=== PATIENT | male | born 1975 | race Caucasian/White ===

== ENCOUNTER 2021-09-13 12:12 | Inpatient (IN) | payer SELFPAY ==
[2021-09-13 12:50] LABS: Hematocrit 48.7 % (39.6-49.0); Lymphocytes % 14.3 % (15.3-44.8); MPV 7.2 fL (7.6-11.3); RBC Red Blood Cell Count 4.91 M/uL (4.33-5.43)
[2021-09-13 12:55] LABS: Protime INR 1.32
[2021-09-13 13:14] LABS: ALT/SGPT 16 U/L (12-78); AST/SGOT 12 U/L (15-37); Albumin 2.8 g/dL (3.4-5.0); Alkaline Phosphatase 90 U/L (45-117); BUN Blood Urea Nitrogen 15 mg/dL (7-18); Bicarbonate 28 mmol/L (21-32); Bilirubin Direct 0.1 mg/dL (0-0.2); Bilirubin Total 0.4 mg/dL (0.2-1.0); Glucose Level 113 mg/dL (74-106); Magnesium 2.5 mg/dL (1.8-2.4); NT PRO-BNP 64 pg/mL (<125); Potassium 4.3 mmol/L (3.5-5.1); Protein, Total 8.3 g/dL (6.4-8.2); Sodium Level 135 mmol/L (136-145)
--- NOTE | 2021-09-13 14:00 | RAD REPORT ---
EXAM DESCRIPTION: Ernesto Single View09/13/2021 1:13 pm CLINICAL HISTORY: Chest pain COMPARISON: 2012 FINDINGS: Right lower lobe consolidation Left lung appears clear of acute infiltrate. The heart is normal size IMPRESSION: Right lower lobe consolidation probably pneumonia
[2021-09-13 14:17] LABS: SARS-COV-2 RT PCR NEGATIVE (NEGATIVE)
--- NOTE | 2021-09-13 14:20 | RAD REPORT ---
EXAM DESCRIPTION: CT - Chest For Pe Angio - 09/13/2021 1:41 pm CLINICAL HISTORY: Chest pain COMPARISON: September 13, 2021 chest x-ray TECHNIQUE: Dynamically enhanced axial 3 mm thick images of the chest were obtained during administra tion of <100> mL Isovue 370 IV contrast. Coronal and oblique reconstruction images were generated and reviewed. Exam utilizes a protocol for optimal evaluation of pulmonary arterial tree. Maximum intensity projections 3D imaging was utilized All CT scans are performed using dose optimization technique as appropriate and may include automated exposure control or mA/KV adjustment according to patient size. FINDINGS: A pulmonary embolus is not seen. A thoracic aortic aneurysm is not noted. A pericardial effusion is not seen. Right lower lobe consolidation. Small right pleural effusion. COPD IMPRESSION: Negative for a pulmonary embolism. Right lower lobe consolidation likely pneumonia. This should be followed until it is clear to help ex clude post obstructive process/underlying mass
[2021-09-13] MEDS ORDERED: NA CHLORIDE 0.9% 1,000 ML ONE ×2 (14:41→15:59)
[2021-09-13] MEDS ORDERED: MORPHINE 4 MG/ML SYR ONE (14:41)
[2021-09-13] MEDS ORDERED: ONDANSETRON 4 MG/2 ML VIAL ONE (14:41)
--- NOTE | 2021-09-13 15:11 | ER ---
Nurse's Notes [facility] Name: Eliud Casarez Age: 46 yrs Sex: Male : 1975 Arrival Date: 09/13/2021 Time: 12:15 Bed 28 Private MD: Diagnosis: Pneumonia, unspecified organism Presentation: 09/13 12:18 Chief complaint: Patient states: he has had shortness of breath and chest pain that has ap3 gotten worse over the last 4 days. Coronavirus screen: Client presents with at least one sign or symptom that may indicate coronavirus-19. Standard/surgical mask placed on the client. Ebola Screen: No symptoms or risks identified at this time. Initial Sepsis Screen: Does the patient meet any 2 criteria? RR > 20 per min. HR > 90 bpm. Initial Sepsis Screen: Does the patient meet any 2 criteria? Does the patient have a suspected source of infection? No. Patient's initial sepsis screen is negative. Risk Assessment: Do you want to hurt yourself or someone else? Patient reports no desire to harm self or others. Onset of symptoms was September 09, 2021. 12:18 Method Of Arrival: Ambulatory ap3 12:18 Acuity: DENAE 2 ap3 Triage Assessment: 12:22 General: Appears uncomfortable, Behavior is cooperative. General: Reports. Pain: ap3 Complains of pain in chest Pain radiates to back. Neuro: Level of Consciousness is awake, Oriented to person, place, time, situation. Cardiovascular: Patient's skin is warm and dry. Chest pain is described as Pain is 10 out of 10 on a pain scale. quality is pressure, is located in left radiates back neck began 4 days ago. Respiratory: Reports shortness of breath cough that is Airway is patent. Historical: - Allergies: 12:21 PENICILLINS; ap3 - Home Meds: 12:21 None [Active]; ap3 - PMHx: 12:21 None; ap3 - Immunization history:: Client reports having NOT received the Covid vaccine. - Social history:: Smoking status: Patient reports the use of cigarette tobacco products, smokes one-half pack cigarettes per day, Patient uses street drugs, synthetic marijuana . Screenin:24 Abuse screen: Denies threats or abuse. Nutritional screening: No deficits noted. ap3 Tuberculosis screening: No symptoms or risk factors identified. 15:25 Fall Risk None identified. jg9 Assessment: 15:26 Pain: Pain began 1 day ago. jg9 Vital Signs: 12:18 BP 146 / 92; Pulse 127; Resp 19; Temp 99.4; Pulse Ox 97% on R/A; Weight 63.5 kg; Height ap3 5 ft. 10 in. (177.80 cm); Pain 10/10; 12:35 BP 121 / 99; Pulse 125; Resp 22 S; Pulse Ox 97% on R/A; ww 13:00 BP 128 / 91; Pulse 110; Resp 17; Pulse Ox 96% on R/A; ww 14:00 BP 148 / 98; Pulse 112; Resp 20 S; Pulse Ox 97% on R/A; ww 15:00 BP 129 / 85; Pulse 100; Resp 16; Pulse Ox 100% on R/A; jg9 12:18 Body Mass Index 20.09 (63.50 kg, 177.80 cm) ap3 ED Course: 12:15 Patient arrived in ED. ds1 12:21 Triage completed. ap3 12:24 Arm band placed on left wrist. ap3 12:25 Catherine Pat FNP-C is PHCP. kb 12:25 Austin Fitzpatrick MD is Attending Physician. kb 12:36 Debra Dumont, EARLENE is Primary Nurse. ww 13:12 XRAY Chest (1 view) In Process Unspecified. EDMS 13:41 CT Chest For PE Angio In Process Unspecified. EDMS 15:10 Tila Honeycutt MD is Hospitalizing Provider. kb 15:25 No apparent distress. Pt. is pacing. jg9 15:25 Patient has correct armband on for positive identification. Bed in low position. Call jg9 light in reach. Side rails up X 1. monitoring coordinator on. 15:26 Patient maintains SpO2 saturation greater than 95% on room air. jg9 16:26 No provider procedures requiring assistance completed. jg9 16:26 Patient admitted, IV remains in place. jg9 Administered Medications: 14:45 Drug: NS 0.9% 1000 ml Route: IV; Rate: 1000 ml; Site: right antecubital; ww 14:48 Drug: morphine 4 mg Route: IVP; Site: right antecubital; ww 14:56 Drug: Zofran (Ondansetron) 4 mg Route: IVP; Site: right antecubital; ww 15:31 Drug: Rocephin (cefTRIAXone) 1 grams Route: IV; Rate: calculated rate; Site: right ww antecubital; 15:46 Drug: Zithromax (azithromycin) 500 mg Route: IVPB; Infused Over: 1 hrs; Site: right ww antecubital; Outcome: 15:10 Decision to Hospitalize by Provider. kb 16:26 Admitted to ER Hold. Please see [facility] for further documentation. jg9 16:26 Condition: stable 09/14 15:35 Patient left the ED. eb Signatures: Dispatcher [employer] EDMS Catherine Pat, JO ANN-Josué FREIGHT HANDLER-Evonne Schilling ds1 Mikayla Hernández RN RN Tania Rosas Jennifer, RN RN jg9 Debra Dumont RN RN ww Corrections: (The following items were deleted from the chart) 09/13 12:22 12:21 Allergies: No Known Allergies; ap3 ap3
--- NOTE | 2021-09-13 15:11 | EDPHYS ---
Physician Documentation [facility] Name: Eliud Casarez Age: 46 yrs Sex: Male : 1975 Arrival Date: 09/13/2021 Time: 12:15 Bed 28 Private MD: ED Physician Austin Fitzpatrick HPI: 09/13 15:05 This 46 yrs old Male presents to ER via Ambulatory with complaints of Chest Pain. kb 15:06 The patient or guardian reports chest pain that is located primarily in the chest kb diffusely. Onset: 4 day(s) ago. The pain radiates to Associated signs and symptoms: Pertinent positives: shortness of breath. The chest pain is described as sharp. Duration: The patient or guardian reports a single episode, that is still ongoing. Modifying factors: The symptoms are alleviated by nothing. the symptoms are aggravated by cough, deep breath, movement. Severity of pain: At its worst the pain was moderate in the emergency department the pain is unchanged. The patient has not experienced similar symptoms in the past. Historical: - Allergies: 12:21 PENICILLINS; ap3 - Home Meds: 12:21 None [Active]; ap3 - PMHx: 12:21 None; ap3 - Immunization history:: Client reports having NOT received the Covid vaccine. - Social history:: Smoking status: Patient reports the use of cigarette tobacco products, smokes one-half pack cigarettes per day, Patient uses street drugs, synthetic marijuana . ROS: 15:05 Constitutional: Negative for fever, chills, and weight loss. kb 15:05 Cardiovascular: Positive for chest pain, Negative for edema, orthopnea, palpitations, paroxysmal nocturnal dyspnea. 15:05 Respiratory: Positive for cough, shortness of breath, Negative for dyspnea on exertion, hemoptysis, orthopnea, pleurisy, sputum production, wheezing. 15:05 All other systems are negative. Exam: 15:06 Constitutional: This is a well developed, well nourished patient who is awake, alert, kb and in no acute distress. Head/Face: Normocephalic, atraumatic. ENT: Moist Mucous membranes Respiratory: Respirations even and unlabored. No increased work of breathing. Talking in full sentences Abdomen/GI: Soft, non-tender. No distention Skin: Warm, dry with normal turgor. Normal color. MS/ Extremity: Pulses equal, no cyanosis. Neurovascular intact. Full, normal range of motion. Neuro: Awake and alert, GCS 15, oriented to person, place, time, and situation. Moves all extremities. Normal gait. Psych: Awake, alert, with orientation to person, place and time. Behavior, mood, and affect are within normal limits. 15:06 Cardiovascular: Rate: tachycardic, Rhythm: regular, Pulses: no pulse deficits are appreciated, Heart sounds: normal. Vital Signs: 12:18 BP 146 / 92; Pulse 127; Resp 19; Temp 99.4; Pulse Ox 97% on R/A; Weight 63.5 kg; Height ap3 5 ft. 10 in. (177.80 cm); Pain 10/10; 12:35 BP 121 / 99; Pulse 125; Resp 22 S; Pulse Ox 97% on R/A; ww 13:00 BP 128 / 91; Pulse 110; Resp 17; Pulse Ox 96% on R/A; ww 14:00 BP 148 / 98; Pulse 112; Resp 20 S; Pulse Ox 97% on R/A; ww 15:00 BP 129 / 85; Pulse 100; Resp 16; Pulse Ox 100% on R/A; jg9 12:18 Body Mass Index 20.09 (63.50 kg, 177.80 cm) ap3 MDM: 12:27 Patient medically screened. kb 15:03 Data reviewed: vital signs, nurses notes. Data interpreted: Pulse oximetry: on room air kb is 87 %. Interpretation: hypoxia. Plan: O2 by NC applied. Counseling: I had a detailed discussion with the patient and/or guardian regarding: the historical points, exam findings, and any diagnostic results supporting the discharge/admit diagnosis, lab results, radiology results, the need for further work-up and treatment in the hospital. 15:06 Physician consultation: Tila Honeycutt MD was contacted at 15:06, regarding admission, kb to the medical/surgical unit. patient's condition, and will see patient in ED. 09/13 12:26 Order name: Basic Metabolic Panel; Complete Time: 13:21 kb 09/13 12:26 Order name: CBC with Diff; Complete Time: 12:58 kb 09/13 12:26 Order name: LFT's; Complete Time: 13:21 kb 09/13 12:26 Order name: Magnesium; Complete Time: 13:21 kb 09/13 12:26 Order name: NT PRO-BNP; Complete Time: 13:21 kb 09/13 12:26 Order name: PT-INR; Complete Time: 12:58 kb 09/13 12:26 Order name: Troponin HS; Complete Time: 13:21 kb 09/13 12:27 Order name: COVID-19/FLU A+B (Document "Date of Onset" if Symptomatic); Complete Time: kb 14:19 09/13 14:02 Order name: Blood Culture Adult (2) kb 09/13 14:02 Order name: Procalcitonin; Complete Time: 15:36 kb 09/13 14:02 Order name: Lactate; Complete Time: 15:22 kb 09/13 15:37 Order name: Lactate; Complete Time: 17:42 EDMS 09/13 15:37 Order name: CBC with Automated Diff EDMS 09/13 15:37 Order name: CBC with Automated Diff; Complete Time: 13:35 EDMS 09/13 12:26 Order name: XRAY Chest (1 view); Complete Time: 14:01 kb 09/13 12:26 Order name: EKG; Complete Time: 12:27 kb 09/13 12:26 Order name: Cardiac monitoring; Complete Time: 12:34 kb 09/13 12:26 Order name: EKG - Nurse/Tech; Complete Time: 12:34 kb 09/13 12:26 Order name: IV Saline Lock; Complete Time: 12:44 kb 09/13 13:21 Order name: CT Chest For PE Angio; Complete Time: 14:23 kb 09/13 15:37 Order name: Regular EDMS 09/13 15:37 Order name: Comprehensive Metabolic Panel EDMS 09/13 15:37 Order name: Comprehensive Metabolic Panel; Complete Time: 13:35 EDMS 09/13 15:37 Order name: Sputum Gram Stain EDMS 09/13 12:26 Order name: Labs collected and sent; Complete Time: 12:44 kb 09/13 12:26 Order name: O2 Per Protocol; Complete Time: 12:34 kb 09/13 12:26 Order name: O2 Sat Monitoring; Complete Time: 12:34 kb Administered Medications: 14:45 Drug: NS 0.9% 1000 ml Route: IV; Rate: 1000 ml; Site: right antecubital; ww 14:48 Drug: morphine 4 mg Route: IVP; Site: right antecubital; ww 14:56 Drug: Zofran (Ondansetron) 4 mg Route: IVP; Site: right antecubital; ww 15:31 Drug: Rocephin (cefTRIAXone) 1 grams Route: IV; Rate: calculated rate; Site: right ww antecubital; 15:46 Drug: Zithromax (azithromycin) 500 mg Route: IVPB; Infused Over: 1 hrs; Site: right ww antecubital; Disposition: 09/15 13:27 Co-signature as Attending Physician, Austin Fitzpatrick MD I agree with the assessment and kdr plan of care. Disposition Summary: 09/13/21 15:10 Hospitalization Ordered Hospitalization Status: Inpatient Admission kb Provider: Tila Honeycutt Condition: Stable kb Problem: new kb Symptoms: are unchanged kb Bed/Room Type: Standard kb Location: Telemetry/MedSurg (Inpatient)(09/14/21 14:53) eb Room Assignment: [facility](09/14/21 14:53) eb Diagnosis - Pneumonia, unspecified organism kb Forms: - Medication Reconciliation Form kb - SBAR form kb Signatures: Dispatcher [employer] EDCatherine Fritz, MK CHERRY-Austin Pratt MD MD kdr Prokisch, Amanda, RN RN Tania Rosas Whitney RN RN john Corrections: (The following items were deleted from the chart) 09/13 12:22 12:21 Allergies: No Known Allergies; ap3 ap3 15:42 15:37 Blood Culture ordered. EDRI EDMS 15:49 15:10 Telemetry/MedSurg (Inpatient) kb eb 15:49 15:10 kb eb 09/14 14:53 09/13 15:49 [facility] ER HOLD eb eb 09/14 14:53 09/13 15:49 ERHOLD- eb eb
[2021-09-13] MEDS ORDERED: CEFTRIAXONE 1000 MG/VIAL ONE (15:18)
[2021-09-13] MEDS ORDERED: NA CHLORIDE 0.9% 50 ML ONE (15:19)
[2021-09-13] MEDS ORDERED: AZITHROMYCIN 500 MG INJ IVPB ONE (15:19)
[2021-09-13] MEDS ORDERED: NA CHLORIDE 0.9% 250 ML ONE (15:19)
--- NOTE | 2021-09-13 15:28 | P.HP ---
Certification for Inpatient Patient admitted to: Inpatient With expected LOS: >2 Midnights Patient will require the following post-hospital care: None Practitioner: I am a practitioner with admitting privileges, knowledge of patient current condition, hospital course, and medical plan of care. Services: Services provided to patient in accordance with Admission requirements found in Title 42 Section 412.3 of the Code of Federal Regulations Patient History Date of Service: 09/13/21 Reason for admission: Chest pain and shortness of breath History of Present Illness: 46-year-old male with past medical history of chronic tobacco use developed left-sided chest pain intermittent associated with shortness of breath since the last 4 days. Shortness of breath was initially on 03/17 to more at rest now. Patient denies any fever but admits to intermittent chills. He denies any similar episode before. He is not vaccinated against Covid. He denies any Covid contact. He admits to cough with whitish sputum. Upon arrival in the ED he was noted to be tachycardic with heart rate of to the 120s, his temp was 99.4, O2 sats was 87% on room air and he was started on supplemental O2. Chest x-ray shows right lower lobe infiltrate consistent with pneumonia. His Covid screen was negative. He had a chest CT which shows no evidence of pulmonary embolism but right lower lobe consolidation as well as a small right pleural effusion. There was also notable COPD changes. Follow-up CT recommended. His white cell count was elevated at 30.6 thousand with no bandemia. He has been admitted for hypoxia and right lower lobe pneumonia Allergies Penicillins Allergy (Verified 01/11/13 01:24) Itching/Hives/Rash Home medications list reviewed: Yes - Past Medical/Surgical History -: Chronic tobacco use Past Surgical History: Reviewed- Non-Contributory - Social History Smoking Status: Current every day smoker Smoking therapy provided: Yes Patient receptive to therapy: Yes Alcohol use: No CD- Drugs: Yes Caffeine use: No Place of Residence: Home Review of Systems General: Chills, Weakness Respiratory: Cough, Shortness of Breath, SOB with Excertion Cardiovascular: Chest Pain Gastrointestinal: Nausea, Vomiting, Abdominal Pain, Diarrhea, Distention, No Distention, Constipation, Melena, Hematochezia, Other, As per HPI, Unremarkable Musculoskeletal: Atrophy, Neck Pain, Shoulder Pain, Arm Pain, Back Pain, Hand Pain, Leg Pain, Foot Pain, Pedal edema, Other, As per HPI, Unremarkable Integumentary: Rash, Lesions, Jaundice, Bruising, Other, As per HPI, Unremarkable Neurological: Weakness, Numbness, Incoordination, Change in Speech, Confusion, Seizures, Other, As per HPI, Unremarkable Physical Examination - Physical Exam General: Alert, In no apparent distress, Oriented x3 HEENT: Atraumatic, Normocephalic, PERRLA Neck: Supple, 2+ carotid pulse no bruit, JVD not distended Respiratory: Normal air movement, Diminished (right base ), Expiratory wheezes Cardiovascular: No edema, Regular rate/rhythm, Normal S1 S2 Gastrointestinal: Normal bowel sounds, Soft and benign, Non-distended Musculoskeletal: No clubbing, No swelling Integumentary: No rashes, No breakdown Neurological: Normal gait, Normal speech, Normal strength at 5/5 x4 extr External genitalia: No edema, No lesions - Studies Laboratory Data (last 24 hrs) 09/13/21 12:40: PT 15.2 H, INR 1.32 09/13/21 12:40: WBC 13.90 H, Hgb 16.2, Hct 48.7, Plt Count 358 09/13/21 12:40: Sodium 135 L, Potassium 4.3, BUN 15, Creatinine 0.91, Glucose 113 H, Magnesium 2.5 H, Total Bilirubin 0.4, AST 12 L, ALT 16, Alkaline Phosphatase 90 Assessment and Plan - Problems (Diagnosis) (1) COPD exacerbation Current Visit: Yes Status: Acute (2) Pneumonia Current Visit: Yes Status: Acute - Plan Right lower lobe pneumonialikely community-acquired COPDwith mild exacerbation Chronic tobacco use History of polysubstance abuse Acute respiratory distress with hypoxia Plan We will admit patient to inpatient status -We will start patient on empirical Levaquin with Zithromax -Start DuoNebs every 6 as needed wheezing -Smoking cessation advised, we do nicotine patch Start gentle IV fluid with normal saline since tachycardia Follow blood culture x2 We will wean O2 as tolerated, keep sats above 92% DVT prophylaxis with Lovenox GI prophylaxis with PPI Dispositionpossible hospital stay for 2 to 3 days - Advance Directives Does patient have a Living Will: No Does patient have a Durable POA for Healthcare: No Physician Review: Patient Assessed, Agree with Above Assessment and Plan Time Spent Managing Pts Care (In Minutes): 65
[2021-09-13] MEDS ORDERED: ACETAMINOPHEN 500 MG TAB PO PRN (15:29)
[2021-09-13] MEDS ORDERED: ALBUTEROL 2.5 MG/3 ML NEB SOL NEB PRN (15:29)
[2021-09-13] MEDS ORDERED: BENZONATATE 100 MG CAP PO PRN (15:31)
[2021-09-13] MEDS ORDERED: HYDRALAZINE HCL 20 MG/ML VIAL IV PRN (15:31)
[2021-09-13] MEDS: AZITHROMYCIN 250 MG TAB PO SCH (15:32)
[2021-09-13] MEDS: Levofloxacin 750mg IV 750 MG/150 ML BAG IV SCH (16:00)
[2021-09-13] MEDS: NA CHLORIDE 0.9% 1,000 ML IV SCH (16:00)
[2021-09-13] MEDS ORDERED: MORPHINE 2 MG/ML SYR ONE ×2 (17:27→21:53)
[2021-09-13] MEDS ORDERED: BENZONATATE 100 MG CAP PO ONE (17:27)
[2021-09-13] MEDS: MORPHINE 2 MG/ML SYR IV PRN (17:29)
[2021-09-13] MEDS ORDERED: INFLUENZA VACCINE (for 6+ mo) 0.5 ML DOSE IMVAC ONE (18:00)
[2021-09-13] MEDS ORDERED: IPRATROPIUM BROM 0.5MG/2.5ML ONE ×2 (19:41→21:42)
[2021-09-13] MEDS: IPRATROPIUM BROM 0.5MG/2.5ML NEB SCH (20:00)
[2021-09-13] MEDS: GUAIFENESIN 600 MG SA TAB PO SCH (21:00)
[2021-09-13] MEDS: FAMOTIDINE 20 MG TAB PO SCH (21:00)
[2021-09-13] MEDS ORDERED: FAMOTIDINE 20 MG/2 ML VIAL IV ONE (21:42)
[2021-09-13] MEDS ORDERED: GUAIFENESIN 600 MG SA TAB PO ONE (21:47)
[2021-09-14] MEDS ORDERED: IPRATROPIUM BROM 0.5MG/2.5ML ONE ×4 (02:07→14:20)
[2021-09-14] MEDS ORDERED: ALBUTEROL 2.5 MG/3 ML NEB SOL ONE ×2 (02:07→07:38)
[2021-09-14] MEDS: IPRATROPIUM BROM 0.5MG/2.5ML NEB SCH ×4 (02:15→19:35)
[2021-09-14] MEDS ORDERED: NA CHLORIDE 0.9% 1,000 ML ONE ×2 (03:37→14:24)
[2021-09-14 03:52] LABS: Absolute Lymphocytes (CBC) 1.8 K/uL (0.7-4.9); Hematocrit 39.9 % (39.6-49.0); Lymphocytes % 16.8 % (15.3-44.8); MPV 7.2 fL (7.6-11.3); RBC Red Blood Cell Count 4.05 M/uL (4.33-5.43)
[2021-09-14 04:12] LABS: ALT/SGPT 15 U/L (12-78); AST/SGOT 8 U/L (15-37); Albumin 2.2 g/dL (3.4-5.0); Alkaline Phosphatase 72 U/L (45-117); BUN Blood Urea Nitrogen 12 mg/dL (7-18); Bicarbonate 27 mmol/L (21-32); Bilirubin Total 0.3 mg/dL (0.2-1.0); Glucose Level 119 mg/dL (74-106); Potassium 3.6 mmol/L (3.5-5.1); Protein, Total 6.8 g/dL (6.4-8.2); Sodium Level 135 mmol/L (136-145)
[2021-09-14] MEDS: NA CHLORIDE 0.9% 1,000 ML IV SCH ×2 (05:20→16:47)
[2021-09-14] MEDS ORDERED: NICOTINE 21 MG/PAT TD ONE (07:39)
[2021-09-14] MEDS ORDERED: ASPIRIN EC 81 MG TAB PO ONE (07:39)
[2021-09-14] MEDS ORDERED: AZITHROMYCIN 250 MG TAB ONE (07:39)
[2021-09-14] MEDS ORDERED: ENOXAPARIN 40 MG/0.4 ML SQ ONE (07:40)
[2021-09-14] MEDS ORDERED: FAMOTIDINE 20 MG TAB ONE (07:40)
[2021-09-14] MEDS: FAMOTIDINE 20 MG TAB PO SCH ×2 (08:18→20:45)
[2021-09-14] MEDS: ASPIRIN EC 81 MG TAB PO SCH (08:18)
[2021-09-14] MEDS: ENOXAPARIN 40 MG/0.4 ML SQ SCH (08:18)
[2021-09-14] MEDS: NICOTINE 21 MG/PAT TD SCH (08:18)
[2021-09-14] MEDS: AZITHROMYCIN 250 MG TAB PO SCH (08:19)
[2021-09-14] MEDS: MORPHINE 2 MG/ML SYR IV PRN ×3 (08:19→20:45)
[2021-09-14] MEDS: GUAIFENESIN 600 MG SA TAB PO SCH ×2 (08:19→20:45)
[2021-09-14] MEDS ORDERED: MORPHINE 2 MG/ML SYR ONE ×2 (08:23→15:14)
[2021-09-14] MEDS: Levofloxacin 750mg IV 750 MG/150 ML BAG IV SCH (15:48)
[2021-09-14] MEDS: METHYLPREDNISOLONE 40 MG INJ IV SCH (17:47)
[2021-09-15] MEDS: METHYLPREDNISOLONE 40 MG INJ IV SCH ×3 (00:47→16:38)
--- NOTE | 2021-09-15 01:31 | P.PN ---
Subjective Date of Service: 09/14/21 Subjective: Improving Still with tachypnea and pleuritic CP Review of Systems 10-point ROS is otherwise unremarkable Physical Examination - Vital Signs Temperature: 97 F Blood Pressure: 103/61 Pulse: 94 Respirations: 17 Pulse Ox (%): 96 - Physical Exam General: Alert, In no apparent distress, Oriented x3 HEENT: Atraumatic, PERRLA, EOMI Neck: Supple, JVD not distended Respiratory: Clear to auscultation bilaterally, Normal air movement Cardiovascular: Regular rate/rhythm, Normal S1 S2 Gastrointestinal: Normal bowel sounds, No tenderness Musculoskeletal: No tenderness Integumentary: No rashes Neurological: Normal speech, Normal tone, Normal affect Lymphatics: No axilla or inguinal lymphadenopathy - Studies Medications List Reviewed: Yes Assessment & Plan - Problems (Diagnosis) (1) COPD exacerbation Current Visit: Yes Status: Acute (2) Pneumonia Current Visit: Yes Status: Acute - Plan 1. Continue with IV antibiotics 2. Awaiting sputum and blood culture 3. Repeat chest x-ray 4. Will proceed with CT scan of the chest if pneumonia is not improved to evaluate for postobstructive pneumonia 5. Respiratory isolation is not needed 6. Continue with nebs as needed 7. O2 per protocol 8. Continue with gentle hydration 9. Repeat labs including CBC and renal function in a.m. 10. GI and DVT prophylaxis - Advance Directives Does patient have a Living Will: No Does patient have a Durable POA for Healthcare: No Physician Review: Patient Assessed, Agree with Above Assessment and Plan
[2021-09-15] MEDS: IPRATROPIUM BROM 0.5MG/2.5ML NEB SCH ×4 (02:43→19:40)
[2021-09-15 06:44] LABS: Absolute Lymphocytes (CBC) 0.9 K/uL (0.7-4.9); Hematocrit 42.6 % (39.6-49.0); Lymphocytes % 11.9 % (15.3-44.8); MPV 6.9 fL (7.6-11.3); RBC Red Blood Cell Count 4.34 M/uL (4.33-5.43)
[2021-09-15 07:13] LABS: ALT/SGPT 19 U/L (12-78); AST/SGOT 14 U/L (15-37); Albumin 2.2 g/dL (3.4-5.0); Alkaline Phosphatase 77 U/L (45-117); BUN Blood Urea Nitrogen 12 mg/dL (7-18); Bicarbonate 25 mmol/L (21-32); Bilirubin Total 0.2 mg/dL (0.2-1.0); Glucose Level 140 mg/dL (74-106); Magnesium 2.4 mg/dL (1.8-2.4); NT PRO-BNP 156 pg/mL (<125); Potassium 4.3 mmol/L (3.5-5.1); Protein, Total 7.1 g/dL (6.4-8.2); Sodium Level 136 mmol/L (136-145)
--- NOTE | 2021-09-15 08:06 | RAD REPORT ---
EXAM DESCRIPTION: RAD - Chest Single View - 09/15/2021 6:54 am CLINICAL HISTORY: pneumonia COMPARISON: September 13 portable imaging, September 05 CT chest imaging TECHNIQUE: AP portable chest image was obtained 09/15/2021 6:54 am . FINDINGS: Significant progression in the right base opacification. Consolidation now obscures the ri ght heart border and right hemidiaphragm. No cavitation evident. Heart and vasculature are normal. Ri ght-sided pleural effusion has likely progressed as well. No pneumothorax seen. No acute bony abnormality seen. No acute aortic findings suspected. IMPRESSION: Significant progression of right base pneumonia since prior imaging. Right pleural effusion appears slightly worse.
[2021-09-15] MEDS: ASPIRIN EC 81 MG TAB PO SCH (09:26)
[2021-09-15] MEDS: ENOXAPARIN 40 MG/0.4 ML SQ SCH (09:26)
[2021-09-15] MEDS: GUAIFENESIN 600 MG SA TAB PO SCH ×2 (09:26→21:19)
[2021-09-15] MEDS: FAMOTIDINE 20 MG TAB PO SCH ×2 (09:26→21:18)
[2021-09-15] MEDS: NICOTINE 21 MG/PAT TD SCH (09:28)
[2021-09-15 09:58] LABS: Blood Morphology Comment NOT SEEN (NOT SEEN); Platelet Estimate ADEQ; White Blood Cell Scan OK (OK)
[2021-09-15] MEDS: NA CHLORIDE 0.9% 1,000 ML IV SCH (13:58)
[2021-09-15] MEDS: Levofloxacin 750mg IV 750 MG/150 ML BAG IV SCH (16:38)
[2021-09-16] MEDS: METHYLPREDNISOLONE 40 MG INJ IV SCH (00:07)
--- NOTE | 2021-09-16 01:40 | P.PN ---
Date of Service: 09/15/21 Subjective She is clinically doing better. However, his x-ray looks worse. Right lower lobe pneumonia with pleural effusion. Review of Systems 10-point ROS is otherwise unremarkable Physical Examination - Vital Signs Reviewed - Physical Exam General: Alert, In no apparent distress, Oriented x3 Respiratory: Clear to auscultation bilaterally, Normal air movement Cardiovascular: Regular rate/rhythm, Normal S1 S2 Gastrointestinal: Normal bowel sounds, No tenderness Neurological: Normal speech, Normal tone, Normal affect Assessment & Plan - Problems (Diagnosis) (1) COPD exacerbation Current Visit: Yes Status: Acute (2) Pneumonia Current Visit: Yes Status: Acute - Plan Continue with plan of care as mentioned below: 1. Continue with IV antibiotics 2. Awaiting sputum and blood culture 3. Repeat chest x-ray 4. Will proceed with CT scan of the chest 5. Monitor for empyema; pulmonary consulted 6. Continue with nebs as needed 7. O2 per protocol 8. Hep-Lock IV 9. Repeat labs including CBC and renal function in a.m. 10. GI and DVT prophylaxis - Advance Directives Does patient have a Living Will: No Does patient have a Durable POA for Healthcare: No Physician Review: Patient Assessed, Agree with Above Assessment and Plan
[2021-09-16] MEDS: IPRATROPIUM BROM 0.5MG/2.5ML NEB SCH ×2 (02:05→07:59)
[2021-09-16 06:08] LABS: Hematocrit 44.3 % (39.6-49.0); Lymphocytes % 7.3 % (15.3-44.8); RBC Red Blood Cell Count 4.48 M/uL (4.33-5.43)
[2021-09-16 07:41] LABS: BUN Blood Urea Nitrogen 16 mg/dL (7-18); Bicarbonate 26 mmol/L (21-32); Glucose Level 142 mg/dL (74-106); Potassium 4.3 mmol/L (3.5-5.1); Sodium Level 139 mmol/L (136-145)
--- NOTE | 2021-09-16 08:29 | P.CNS ---
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 symptoms and signs consistent with pneumonia Allergies Penicillins Allergy (Verified 01/11/13 01:24) Itching/Hives/Rash Home Medications: NK [No Home Meds] 09/14/21 - Past Medical/Surgical History Diabetic: No -: Chronic tobacco use - Social History Smoking Status: Current every day smoker Alcohol use: No CD- Drugs: Yes Caffeine use: No Place of Residence: Home Review of Systems Respiratory: Shortness of Breath Cardiovascular: Chest Pain Physical Examination Temp Pulse Resp BP Pulse Ox 97.5 F 84 17 110/60 94 09/16/21 04:00 09/16/21 04:00 09/16/21 04:00 09/16/21 04:00 09/16/21 04:00 General: Alert, In no apparent distress, Oriented x3 Neck: Supple Respiratory: Crackles/rales (Crackles at the right base) Cardiovascular: No edema, Normal S1 S2 - Problems (1) Pneumonia Current Visit: Yes Status: Acute Plan: Patient is 46 years of age admitted with acute right lower lobe pneumonia he does have consolidation with small pleural effusion he is doing better vital signs are all stable check patient off oxygen ambulate discharged on levofloxacin 750 mg daily for 7 days also was also prescribed him a bronch odilator that he can take at home use albuterol as needed he usually denies any shortness of breath at baseline counseled not to smoke stable for discharge Qualifiers: Pneumonia type: due to unspecified organism
[2021-09-16] MEDS ORDERED: levoFLOXacin 750 MG TAB PO SCH (09:00)
[2021-09-16] MEDS ORDERED: DULERA 100/5 (MOMETASONE/FORMOTEROL) INHALER IH SCH (09:00)
[2021-09-16] MEDS: NICOTINE 21 MG/PAT TD SCH (09:00)
[2021-09-16] MEDS: FAMOTIDINE 20 MG TAB PO SCH (09:16)
[2021-09-16] MEDS: GUAIFENESIN 600 MG SA TAB PO SCH (09:16)
[2021-09-16] MEDS: ASPIRIN EC 81 MG TAB PO SCH (09:16)
[2021-09-16] MEDS: ENOXAPARIN 40 MG/0.4 ML SQ SCH (09:17)
--- NOTE | 2021-09-16 09:34 | RAD REPORT ---
EXAM DESCRIPTION: RAD - Chest Single View - 09/16/2021 6:00 am CLINICAL HISTORY: pneumonia Chest pain. COMPARISON: Chest Single View dated 09/15/2021; Chest Single View dated 09/13/2021; CHEST PA AND LAT 2 VIEW dated 01/11/2013 FINDINGS: Portable technique limits examination quality. Right lung base parenchymal and pleural opacification is again seen, essentially unchanged since prio r study. The left lung is emphysematous but clear. The heart is normal in size.
[2021-09-16 10:03] LABS: Blood Morphology Comment NOT SEEN (NOT SEEN); Platelet Estimate ADEQ; White Blood Cell Scan OK (OK)
--- NOTE | 2021-09-16 11:32 | P.DS ---
Admission Date: 09/13/21 Discharge Date: 09/16/21 Discharge Condition: GOOD Reason for Admission: Chest pain and shortness of breath Hospital Course: Patient is a 46 year old male with a PMH of tobacco smoking who was admitted with RLL pneumonia with mild pleural effusion. No signs of pleuresy. He did well on levofloxacin. Pulmonary was also consulted on admission. He is stable for discharge today. Vital Signs/Physical Exam: Temp Pulse Resp BP Pulse Ox 97.5 F 84 20 93/57 L 97 09/16/21 08:00 09/16/21 08:00 09/16/21 08:00 09/16/21 08:00 09/16/21 08:00 General: Alert, In no apparent distress HEENT: Atraumatic, Normocephalic Neck: Supple Respiratory: Clear to auscultation bilaterally Cardiovascular: No edema Musculoskeletal: No clubbing, No swelling Integumentary: No rashes, No breakdown, No significant lesion Neurological: Normal speech, Normal affect Laboratory Data at Discharge: WBC 13.70 K/uL (4.3-10.9) H D 09/16/21 05:44 Hgb 14.8 g/dL (13.6-17.9) 09/16/21 05:44 Hct 44.3 % (39.6-49.0) 09/16/21 05:44 Plt Count 354 K/uL (152-406) 09/16/21 05:44 PT 15.2 SECONDS (9.5-12.5) H 09/13/21 12:40 INR 1.32 09/13/21 12:40 Sodium 139 mmol/L (136-145) 09/16/21 05:44 Potassium 4.3 mmol/L (3.5-5.1) 09/16/21 05:44 BUN 16 mg/dL (7-18) 09/16/21 05:44 Creatinine 0.75 mg/dL (0.55-1.3) 09/16/21 05:44 Glucose 142 mg/dL (74-106) H 09/16/21 05:44 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
[2021-09-16 11:47] VITALS: O2SAT 95
[2021-09-16 11:54] VITALS: BP 101/55; TEMP 97.4
== END 2021-09-16 12:32 | disposition home or self-care (01) | DRG 190 ==
LOC: ER 12:12 → ERHOLD 15:48 → 2ND 09-14 15:10
PROVIDERS: ADMIT Internal Medicine; ATTEND Internal Medicine
DX: J44.0 Chronic obstructive pulmonary disease with (acute) lower respiratory infection (principal); J18.9 Pneumonia, unspecified organism; J90 Pleural effusion, not elsewhere classified; J44.1 Chronic obstructive pulmonary disease with (acute) exacerbation; R06.03 Acute respiratory distress; R09.02 Hypoxemia; R00.0 Tachycardia, unspecified; F17.210 Nicotine dependence, cigarettes, uncomplicated; Z88.0 Allergy status to penicillin; Z20.822 Contact with and (suspected) exposure to COVID-19
CPT/HCPCS: 0240U; 36415; 71045; 71275; 80048; 80053; 80076; 83605; 83735; 83880; 84145; 84484; 85025; 85610; 87040; 93005; 94010; 94640; 94760; 96374; 96375; 99285; J0456; J1650; J2270; J2405; J2920; J7030; J7050; J7606; Q9967